=== PATIENT | female | born 1990 | race Caucasian/White ===

== ENCOUNTER 2021-11-03 15:22 | Observation (INO) | payer OTHER ==
[~2021-11-03] VITALS: Ht 167.6 cm; Wt 105.7 kg
[2021-11-03 16:17] LABS: HEMOGLOBIN 14.1 gm/dl (12.3-15.3); RED BLOOD COUNT 4.25 M/UL (4.00-5.10)
[2021-11-03 16:39] LABS: BUN/CREATININE RATIO 8 (0-10)
[2021-11-03] MEDS ORDERED: CYCLOBENZAPRINE10 MG PO (17:11)
[2021-11-03] MEDS ORDERED: IBUPROFEN800 MG PO (17:11)
[2021-11-03] MEDS ORDERED: ESCITALOPRAM OX10 MG PO (18:02)
[2021-11-03] MEDS ORDERED: PROAIR HFA8.5 GM INH (18:02)
[2021-11-03] MEDS ORDERED: PRAZOSIN HCL1 MG PO (18:02)
[2021-11-03] MEDS ORDERED: FLONASE ALLER15.8 ML (18:03)
[2021-11-03] MEDS ORDERED: ROBAXIN 750 MG750 MG PO (18:03)
[2021-11-03] MEDS ORDERED: CETIRIZINE HCL10 MG PO (18:03)
[2021-11-03] MEDS ORDERED: MONTELUKAST SOD10 MG PO (18:03)
[2021-11-03] MEDS ORDERED: NAPROXEN500 MG PO (18:04)
== END 2021-11-04 15:37 | disposition home or self-care (01) ==
LOC: ER1 15:22 → CDU 17:47 → M/S 17:47
PROVIDERS: Preventive Medicine Occupational Medicine; ADMIT Surgery
DX: S09.90XA Unspecified injury of head, initial encounter (principal); M54.50 Low back pain, unspecified; F17.210 Nicotine dependence, cigarettes, uncomplicated; M19.90 Unspecified osteoarthritis, unspecified site; Z79.899 Other long term (current) drug therapy; V49.49XA Driver injured in collision with other motor vehicles in traffic accident, initial encounter; Y93.89 Activity, other specified
CPT/HCPCS: 70450; 71045; 72125; 72128; 72131; 72170; 80048; 85025; 93005; 99285; G0378